=== PATIENT | female | born 1985 | race Asian ===

== ENCOUNTER 2020-04-26 16:17 | Inpatient (IN) ==
[2020-04-26] MEDS ORDERED: Lidocaine 1% VIAL 10 MG/ML VIAL ONE (21:09)
[2020-04-27 01:22] LABS: Urine Benzodiazepine Screen None Detected (None Detect); Urine Cannabinoids Screen None Detected (None Detect); Urine Opiates Screen None Detected (None Detect)
[2020-04-27 07:07] LABS: Hematocrit 38 % (35-47); Hemoglobin 13.1 g/dL (12.0-16.0); Mean Corpuscular HGB Conc 35 g/dL (31-36); Mean Corpuscular Hemoglobin 35 pg (27-31); Mean Corpuscular Volume 101 fL (80-97); Mean Platelet Volume 7.6 fL (7.4-10.4); Platelet Count 203 10^3/uL (150-450); Red Blood Count 3.73 10^6 /uL (3.70-4.87); Red Cell Distribution Width 14 % (10-15); White Blood Count 13.8 10^3/uL (3.5-10.8)
[2020-04-27] MEDS ORDERED: Witch Hazel PAD JAR TOPICAL PRN (10:28)
[2020-04-27] MEDS ORDERED: Dibucaine 1% OINT 28.35 GM TUBE PR PRN (10:28)
[2020-04-27] MEDS ORDERED: Glycerin ADULT 2.4 gm SUPP PR PRN (10:28)
[2020-04-27] MEDS ORDERED: Lactated Ringers 1000 ml BAG 1,000 ML IV SCH (11:00)
[2020-04-28 07:35] VITALS: BP 97/54
== END 2020-04-28 11:26 | disposition home or self-care (01) | DRG 560 ==
LOC: MCHOBOUT 16:17 → MCHOB 16:49
PROVIDERS: ADMIT Midwife; ATTEND Midwife